=== PATIENT | female | born 1940 | race Caucasian/White ===

== ENCOUNTER 2025-04-25 19:27 | Emergency (ER) | payer MEDICARE ==
[2025-04-25 22:14] LABS: Actual Bicarbonate (HCO3v) 20.7 mEq/L (22-28); Base Excess -4.5 mEq/L (-2.0 to +3.0); Calcium, Ionized (venous) 1.11 mmol/L (1.16-1.32); Chloride (VBG) 100 mmol/L (98-106); Hematocrit-VBG 32 % (36.0-47.0); Hemoglobin (Hb) 10.9 g/dL (11.7-16.1); Potassium (VBG) 4.19 mmol/L (3.70-5.30); Sodium 135 mmol/L (133-146)
[2025-04-25 22:15] LABS: #Basophils Less than 0.03 10x3/uL (0.0-0.2); #Eosinophils Less than 0.03 10x3/uL (0.0-0.7); #Monocytes 0.23 10x3/uL (0.11-0.59); #Neutrophils 6.75 10x3/uL (1.40-6.50); %Basophils 0.3 % (0.0-1.0); %Eosinophils 0.0 % (0.0-10.0); %Lymphocytes 5.7 % (21.0-51.0); %Monocytes 3.0 % (0.0-10.0); %Neutrophils 86.6 % (42.0-75.0); Hematocrit 30.8 % (36.0-47.0); Hemoglobin 9.5 g/dL (12.0-16.0); Mean Corpuscular Hemoglobin 28.2 pg (27.0-31.0); Mean Corpuscular Volume 91.4 fL (78.0-98.0); Platelet Count 570 10x3/uL (130-400); Red Blood Cell (RBC) Count 3.37 mill/uL (4.20-5.40); White Blood Cell (WBC) Count 7.78 10x3/uL (4.8-10.8)
[2025-04-25 22:42] LABS: ALT (SGPT) 11 U/L (Less than 34); AST (SGOT) 28 U/L (11-34); Albumin 3.2 g/dL (3.1-4.5); Alkaline Phosphatase 163 U/L (40-110); Anion Gap 20 mmol/L (10-20); BUN (Urea Nitrogen) 34 mg/dL (9.8-20.1); Bilirubin, Total 0.5 mg/dL (0.3-1.2); Calc. Creatinine Clearance 0 mL/min (70-130); Calcium 8.8 mg/dL (7.8-10.44); Carbon Dioxide 19 mmol/L (23-31); Chloride 102 mmol/L (98-107); Globulin 3.3 g/dL (2.4-3.5); Glucose 126 mg/dL (83-110); Potassium 4.4 mmol/L (3.5-5.1); Sodium 137 mmol/L (136-145)
== END 2025-04-26 00:22 | disposition home or self-care (01) ==
LOC: ERS 19:27
DX: R09.02 Hypoxemia (principal); I13.0 Hypertensive heart and chronic kidney disease with heart failure and stage 1 through stage 4 chronic kidney disease, or unspecified chronic kidney disease; I50.9 Heart failure, unspecified; N18.9 Chronic kidney disease, unspecified; D63.1 Anemia in chronic kidney disease; J45.909 Unspecified asthma, uncomplicated; R79.1 Abnormal coagulation profile
CPT/HCPCS: 71045; 80053; 82805; 83880; 85025; 85379; 93005; 94640; 94760